=== PATIENT | male | born 1965 | race Caucasian/White ===

== ENCOUNTER 2022-06-28 21:32 | Inpatient (IN) | payer MEDICAID, SELFPAY ==
[2022-06-28] VITALS (7 sets, daily range): BP systolic 121–218; BP diastolic 97–143; PULSE 53–104; RESP 18–20; TEMP 36.7; O2SAT 94–99; BMI 22.8
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
[2022-06-28 20:34] LABS: ABG Base Excess -6.9 mmol/L (-2.4-2.3); ABG HCO3 18.8 mmhg (22.0-26.0); ABG Oxygen Saturation 100 % (90-100); ABG PCO2 35.2 mmhg (35.0-45.0); ABG PH 7.35 mmol/L (7.35-7.45); ABG PO2 519.6 mmhg (80-100); ABG TCO2 19.9 mmhg (23-27)
[2022-06-28 20:36] LABS: Oxygen 100 %; PEEP 5; Tidal Volume 440; Vent Rate 18
[2022-06-28 20:37] LABS: Source Right Radial
--- NOTE | 2022-06-28 20:45 | PC.NURSE ---
18F OG tube inserted, verified placement with auscultation, aspiration of brown gastric contents and fluoro via cathlab. Brilinta and ASA given via OG, flushed with 50ml of water and clamped, 2nd floor RN notified of medication given.
[2022-06-28 20:57] LABS: CATHL Activated Clotting Time 319 SEC (74-125)
[2022-06-28 20:58] LABS: CATHL Activated Clotting Time 278 SEC (74-125)
--- NOTE | 2022-06-28 20:58 | XR_ITS ---
PROCEDURE INFORMATION: Exam: XR Chest Exam date and time: 06/28/2022 9:14 PM Age: 56 years old Clinical indication: Device placement; Ng tube; Prior surgery; Surgery type: Post heart cath; Additional info: Ng placement TECHNIQUE: Imaging protocol: Radiologic exam of the chest. Views: 1 view. COMPARISON: No relevant prior studies available. FINDINGS: Limitations: Radiographic technique - mild. Rotation - mild. Tubes, catheters and devices: Endotracheal tube, tip located approximately 4.5 cm from ilene. NG tube courses below diaphragm, tip projected over body of stomach. External pacemaker. Leads overlying chest. Lungs: Scattered mild patchy airspace opacities, LEFT greater than RIGHT. Pleural spaces: No definite pleural effusion. No pneumothorax. Heart/Mediastinum: No cardiomegaly. Bones/joints: No displaced fracture. Soft tissues: Unremarkable. IMPRESSION: 1. NG tube courses below diaphragm, tip projected over body of stomach. 2. Findings compatible with multifocal pneumonia and/or asymmetric pulmonary edema. Followup to resolution to exclude underlying pathology.
--- NOTE | 2022-06-28 21:42 | PC.NURSE ---
PT TO FLOOR VIA STRETCHER AT 2113
[2022-06-28 21:56] LABS: Microscopic, Urine URINE MICROSCOPIC (MICROSCOPIC)
--- NOTE | 2022-06-28 22:04 | PC.NURSE ---
Addendum entered by Leena Pugh RN 06/29/22 00:46: 8 OETT, vent settings 50%FIO2, tidal volume 440, rate 18, peep 5; romero catheter in place; ogt patent and able to hear with auscultation (director of laboratory operations RN stated asa and brilinta given in director of laboratory operations) Addendum entered by Leena Pugh RN 06/29/22 00:05: unable to complete admission paperwork due to pt emv 6T and no family present Original Note: pt admitted to 216 from director of laboratory operations, pt had 1 stent placed, MD went through right radial site, tracelet in place with mild sanguineous drainage; pt intubated and sedated on propofol 10mcg/kg/min, pt is a 6T, pupils equal round and reactive to light and accommodation, lungs sounds rhonchi, active bowel sounds, OGT in place with stomach contents present in tube, positive pulses, 20G IV to Left forearm, attempting to get another IV and labs, pt rousing so titrating propofol accordingly, BRIA Gracia stated okay to go above 50mcg/kg/max due to agitation, 1 25mcg IV push given per verbal order at bedside from BRIA Gracia APRN to order fentanyl drip and heparin drip, RN from director of laboratory operations coming to start USG IV
--- NOTE | 2022-06-28 22:21 | PC.NURSE ---
20G USG IV placed right AC, dominick more started per MD Rosenbaum; notifying night watch to dose heparin drip
[2022-06-28 22:25] LABS: Appearance,Urine CLEAR (Clear); Bilirubin,Urine Negative (Negative); Blood, Urine 2+ (Negative); Color,Urine YELLOW (Yellow); Glucose,Urine (UA) TRACE (Negative); Ketones,Urine Negative (Negative); Leukocyte Esterase,Urine Negative (Negative); Nitrate,Urine Negative (Negative); Protein,Urine 1+ (Negative); Specific Gravity, Urine 1.025 (1.005-1.030); Urobilinogen,Urine 0.2 EU/dl (0.2)
--- NOTE | 2022-06-28 22:26 | EXP.HP ---
History of Present Illness *Admission Date: 06/28/22 *Reason for visit:: STEMI, Unresponsiveness *History of present illness: Mr. Glynn is a 56-year-old male who was transferred from [facility] due to a STEMI. Per records reviewed from the transferring facility he has a history of CAD and CABG and history of Alcohol Abuse. [facility] he was agitated and combative and required Versed. On arrival to this facility he was again aggressive, combative and confused and required sedation and mechanical ventilation for his treatment, protection and staff protection. Following his intubation there was concern for aspiration and he was aggressively suctioned. Cxray shows a multifocal pneumonia. He underwent cathertization at the facility and received PCI by radial approach to a large ramus intermedius which was critically occluded at 90%. Discussion was undertaken with Dr. Rosenbaum who recommended continuing intubation and sedation overnight and Heparin. On arrival to the unit he is intubated and sedated. Due to concern for aspiration Pneumonia he has been placed on broad spectrum antibiotics while we await cultures. RT has adjusted ventilator settings in the research laboratory manager and decreased FiO2 based on ABG. [facility] Disclaimer: The information contained in this section may have been updated after the patient was seen, as this information can be updated by other users. Medical History (Updated 06/28/22 @ 22:46 by Fly Tanner DNP) Alcohol abuse CAD (coronary artery disease) Surgical History (Updated 06/28/22 @ 22:33 by Fly Tanner DNP) Hx of CABG Social History (Updated 06/28/22 @ 23:09 by Fly Tanner DNP) Smoking Status: Current every day smoker alcohol intake: current current occupational status: other Travel in the last 8 weeks: None Review of Systems Review of Systems Review of systems:: unable to obtain Meds Home Medications and Allergies New Prescriptions to Start Prescriptions: Allergies Allergy/AdvReac Type Severity Reaction Status Date / Time No Known Allergies Allergy Verified 06/28/22 20:12 Exam Data for Last 24 hours Vital signs and Labs for Last 24 Hours: Resp Pulse Ox FiO2 20 94 L 50 06/28/22 22:06 06/28/22 22:06 06/28/22 22:06 Laboratory Results - last 24 hr 06/28/22 20:32: Specimen Source Right radial, O2 % 100, ABG pH 7.35, ABG pCO2 35.2, ABG pO2 519.6 H, ABG HCO3 18.8 L, ABG Total CO2 19.9 L, ABG O2 Saturation 100, ABG Base Excess -6.9 L, Vent Rate 18, Tidal Volume 440, PEEP 5 06/28/22 20:55: Activated Clotting Time 278 H* 06/28/22 21:19: Activated Clotting Time 319 H* I & O for Last 24 hours: Intake & Output 06/25/22 06/26/22 06/27/22 06/28/22 23:59 23:59 23:59 23:59 Weight 70 kg Constitutional Constitutional: no acute distress *Routine HEENT Exam Head: Present normocephalic Eye: Present PERRL ENT: Present mucous membranes dry *Routine Neck Exam Neck: Present supple *Routine Respiratory Exam Respiratory: Present rhonchi *Routine Cardiovascular Exam Cardiovascular: Present RRR, Normal S1 and Normal S2 *Routine Abdominal Exam Abdominal: Present soft and normoactive bowel sounds *Routine Rectal Exam Rectal:: deferred *Routine Genitalia Exam Genitalia:: deferred *Routine Skin Exam Skin: Present intact *Routine Neurological Exam Comments: Sedated on ventilator Assessment and Plan *Assessment and plan (1) STEMI (ST elevation myocardial infarction): Status: Acute Qualifiers: Involved coronary artery: left main coronary artery Qualified Code(s): I21.01 - ST elevation (STEMI) myocardial infarction involving left main coronary artery Category: Medical Code(s): I21.3 - ST elevation (STEMI) myocardial infarction of unspecified site (2) Delirium: Status: Acute Category: Medical Code(s): R41.0 - Disorientation, unspecified (3) Aspiration pneumonia
[2022-06-28 22:28] LABS: Bacteria,Urine 1+ /lpf
--- NOTE | 2022-06-28 22:30 | PC.NURSE ---
weighed pt, pt weight 87.7kg
--- NOTE | 2022-06-28 22:32 | PC.NURSE ---
NOTIFIED NIGHT WATCH TO DOSE PT'S HEPARIN DRIP, PT WEIGHS 87.7KG, INSTRUCTED TO GIVE 4,000UNIT BOLUSIV AND START HEPARIN DRIP AT 1000UNITS/HR=20ML/HR, PTT DRAWN NOW AND WILL PLACE ORDER FOR PTT AT 0430 VERIFIED INSTRUCTIONS ON FENTANYL DRIP WITH NIGHTWATCH AND ASKED RX TO VERIFY ORDER FOR DISHCARGE MED CONSULT ON MAR
[2022-06-28 23:04] LABS: Basophils # 0.1 K/mm3 (0-0.2); Basophils % 0.3 % (0.1-2.0); Eosinophils % 0.1 % (0.1-12.0); Hematocrit 51.6 % (42.0-52.0); Lymphocytes # 1.2 K/mm3 (0.7-4.5); Lymphocytes % 3.9 % (10-50); Mean Corpuscular Hemoglobin 31.2 pg (27.0-31.2); Mean Corpuscular Volume 94.7 fl (80-94); Mean Platelet Volume 10.1 fl (7.4-10.4); Monocytes # 1.1 K/mm3 (0.1-1.0); Monocytes % 3.5 % (1.7-9.3); Neutrophils # 27.7 K/mm3 (1.8-7.8); Neutrophils % 92.2 % (37.0-80.0); Platelet Count 220 K/mm3 (142-424); Red Blood Count 5.45 M/mm3 (4.60-6.20); Red Cell Distribution Width 13.9 % (11.5-17.5)
[2022-06-28 23:05] LABS: Chloride 105 mmol/L (98-107); Sodium 138 mmol/L (136-145)
[2022-06-28 23:06] LABS: MANUAL DIFFERENTIAL MANUAL DIFFERENTIAL (MANUAL DIFF)
[2022-06-28 23:08] LABS: Blood Urea Nitrogen 14 mg/dl (9-20); Carbon Dioxide 16 mmol/L (22.0-30.0); Creatinine Clearance Estimated 56 mL/min (50-200); Estimated Glomerular Filt Rate 49 ml/min (>60); GFR (African American) 59 ML/MIN (>60)
[2022-06-28 23:09] LABS: Calcium 9.6 mg/dl (8.4-10.2); Glucose 126 mg/dl (74-100)
--- NOTE | 2022-06-28 23:10 | PC.NURSE ---
Addendum entered by Leena Pugh RN 06/29/22 00:53: notified MATTEO, following pt, MATTEO took family's contact information and stated will call RN back Original Note: 2244-MAKING DRIPS AND HEPARIN BOLUS PER RX INSTRUCTION 2245-PT WITH BRADYCARDIA, STOPPED PROPOFOL DRIP 2247-ASYSTOLE NOTED ON MONITOR COMPRESSIONS STARTED AND CODE CALLED 2250-1MG EPI GIVEN, PULSE CHECK, PEA ON MONITOR COMPRESSIONS RESUMED 225-PEA, COMPRESSIONS RESUMED 2253-1MG EPI GIVEN 225-ROSC OBTAINED, SINUS TACH ON MONITOR 2255-MATEO ON MONITOR, 1MG ATROPINE GIVEN 2256-HR 38 1MG EPI GIVEN 2257-HR 32 THEN ASYSTOLE, COMPRESSIONS RESUMED 2258-FSBS 178, 1MG NARCAN GIVEN 2259-1MG EPI GIVEN, ROSC OBTAINED SINUS TACH THEN IMMEDIATELY MATEO 2300-1MG ATROPINE GIVEN 2302-1MG NARCAN GIVEN 2304-PT , TOD 2304 2320-NOTIFIED KARL MODI, OKAY TO RELEASE BODY 2326-NOTIFIED PT'S SISTER JASON OF PT PASSING, SISTER TO CALL BACK WITH HOME TO CALL
--- NOTE | 2022-06-28 23:10 | EXP.EVENT.NO ---
Provider was called to patient's room by primary RN, Keri who reported patient's pulse was in the 30's. Upon arriving to the room the patient was asystole on the monitor. Chest compressions started and code Blue called overhead. (See code sheet for details). The patient underwent ACLS protocol for Asystole, PEA and Bradycardia during code. However despite attempts patient continued to go into Asystole, time of was called at 2303. ER Physician Dr. Pelayo came to bedside to assist with code. Dr. Rosenbaum, Auto Radio Mechanic was called and informed of events. Patient's sister, Zofia Meza was contacted by phone [phone].
[2022-06-28 23:11] LABS: POC Glucose,Bedside 178 (70-110)
[2022-06-28 23:12] LABS: Magnesium 3.2 mg/dl (1.6-2.3)
[2022-06-28 23:14] LABS: Ethyl Alcohol < 10 mg/dl (0-10)
[2022-06-28 23:19] LABS: Lymphocytes % 2 % (10-50); Monocytes % 4 % (2-9); Neutrophils % 94 % (42-76); Platelet Estimate Normal; RBC Morphology Normal; Total Cells Counted 100
[2022-06-28 23:33] LABS: Troponin I 1.06 ng/ml (0.00-0.034)
[2022-06-28 23:44] LABS: Thyroid Stimulating Hormone 8.74 uIU/mL (0.465-4.68)
[2022-06-28 23:46] LABS: PTT Heparin (inpatient only) > 200.0 Seconds (23.6-34.0)
[2022-06-29 00:04] LABS: NT Pro Brain Natriuretic Pep. 2800 pg/mL (0-125)
[2022-06-29 00:12] LABS: Procalcitonin 0.064 ng/mL (0.0-2.0)
--- NOTE | 2022-06-29 01:32 | PC.NURSE ---
Multiple attempts to call patient's sister. No answers messages left.
--- NOTE | 2022-06-29 03:59 | PC.NURSE ---
Multiple calls to sister, no answers.
--- NOTE | 2022-06-29 19:20 | P.DN_ITS ---
Pronouncement Note Date and Time of Date of : 06/28/22 Time of : 23:03 PCOD Preliminary cause of : Cardiac arrest Contributing Factors (1) STEMI (ST elevation myocardial infarction): (2) Delirium: (3) Aspiration pneumonia: Additional Data Confirmation of : no pulse Family: contacted Additional persons at bedside: portable machine sander Attending/PCP notified?: No Attending physician: Yves Pool MD Was code activated?: Yes Autopsy requested?: No latent print examiner notified?: Yes Organ bank notified?: Yes Advance directives: No
--- NOTE | 2022-06-29 19:23 | EXP.DEATH.DS ---
Documented by User: Fly Tanner DNP 06/29/22 19:38 Discharge Sum: Prov Provider Primary care physician: Marce Bai MD Visit Care Team Role Provider Type Marce Bai MD Primary Care Provider Referring Luke Villalobos MD Other Providers Consulting Physician Johny Rosenbaum MD Other Providers Staff Physician Referring Provider GINNY Gabriel Other Providers Physician Hospice Care Transitions Coordinator Олег Briseno MD Other Providers Consulting Physician Vj Flores MD Other Providers Consulting Physician Jaime Crowder MD Other Providers Staff Physician Kylah Teague APRN Other Providers Nurse Practitioner Yarelis Kraus APRN Other Providers Nurse Practitioner Yves Pool MD Admit Provider Staff Physician Attending Provider Admitting clinician: Yves Pool Attending physician on admission: Yves Pool Consults: 06/28/22 20:57 Cardiac Rehab Consult [Consult to Cardiac Rehabilitation] [CONS] Routine Reason For Consult: pci 06/28/22 21:40 Cardiology Consult [Consult to Cardiology] [CONS] Routine Consulting Provider: Cardiology Reason For Consult: STEMI Pronouncing clinician: Fly Tanner Discharge Sum: Diag PCOD Cause of : Cardiac arrest Contributing Factors (1) STEMI (ST elevation myocardial infarction): (2) Delirium: (3) Aspiration pneumonia: Discharge Sum: Summary Date and Time Date of admission: 06/28/22 21:32 Date of : 06/28/22 Time of : 23:03 Hospital Course prior to Hospital Course Information: Mr. Glynn is a 56-year-old male who was transferred from [facility] due to a STEMI.? Per records reviewed from the transferring facility he has a history of CAD and CABG and history of Alcohol Abuse. [facility] was agitated and combative and required Versed.? On arrival to this facility he was again aggressive, combative and confused and required sedation and mechanical ventilation for his treatment, protection and staff protection.? Following his intubation there was concern for aspiration and he was aggressively suctioned.? Cxray shows a multi-focal pneumonia. He underwent cathertization at the facility and received PCI by radial approach to a large ramus intermedius which was critically occluded at 90%.? Discussion was undertaken with Dr. Rosenbaum who recommended continuing intubation and sedation overnight and Heparin.? On arrival to the unit he was intubated and sedated.? Due to concern for aspiration Pneumonia he was ordered broad spectrum antibiotics while we awaited cultures.? RT has adjusted ventilator settings in the quality assurance qa lab analyst and decreased FiO2 based on ABG.? Summary Details: Mr. Glynn was a 56-year-old male who presented to [facility] from [facility] on 06/28/2021.? He was taken to the quality assurance qa lab analyst and underwent PCI due to CAD.? During the cardiac catheterization he had to be intubated due to aggression for his and staff protection.? Upon arriving to the unit after initial assessment he became bradycardic and provider was called to room by RN for reported HR in the 30's.? Soil Technologist was contacted at that time and was on the phone with provider when arriving to the room.?? On arrival to the room the patient was in Asystole on the monitor and no pulse was palpated.? Drips were turned off by RN and Advanced Cardiac Life support was started.? The patient received multiple cycles of CPR.?
== END 2022-06-28 23:04 | disposition expired | DRG 246 ==
LOC: 2ND 06-29 10:17
PROVIDERS: Nurse Practitioner Family; Admitting Provider Internal Medicine Adolescent Medicine; PCP Emergency Medicine; Referring Provider Internal Medicine; Visit Provider Internal Medicine Adolescent Medicine
PROC: 027034Z Dilation of Coronary Artery, One Artery with Drug-eluting Intraluminal Device, Percutaneous Approach (ICD-10-PCS; principal; 2022-06-28 19:25)
DX: I21.09 ST elevation (STEMI) myocardial infarction involving other coronary artery of anterior wall (principal); J69.0 Pneumonitis due to inhalation of food and vomit; J96.00 Acute respiratory failure, unspecified whether with hypoxia or hypercapnia; R41.0 Disorientation, unspecified; F10.10 Alcohol abuse, uncomplicated; Z95.2 Presence of prosthetic heart valve; I25.10 Atherosclerotic heart disease of native coronary artery without angina pectoris
CPT/HCPCS: 31500; 94002; 71045; 80048; 81001; 82803; 82962; 83735; 83880; 84145; 84443; 84484; 85007; 85025; 85347; 85730; 92920; 92941; 93454; 99152; 99153; C1725; C1769; C1874; C9606; G0378; J1644; J2704; Q9967